=== PATIENT | female | born 1960 | race Caucasian/White ===

== ENCOUNTER 2021-01-14 13:05 | Outpatient (CLI) | payer OTHER, SELFPAY ==
--- NOTE | ~2021-01-14 | MM_ITS ---
EXAMINATION: MM diagnostic nakul LT w mark HISTORY: Left breast asymmetry demonstrated on outside examination. TECHNIQUE: Additional 3-D tomosynthesis images of the left breast were performed and synthetic 2-D im ages were generated. CAD analysis was submitted and interpreted. COMPARISON: 12/02/2018 BREAST PARENCHYMAL COMPOSITION: Breast composed of scattered areas of fibroglandular density. FINDINGS: There are no suspicious masses, calcifications or architectural distortion in the left [address] to suggest malignancy. If no prior outside mammograms on the right breast have been performed in t he interval, screening right mammogram is recommended. IMPRESSION: 1. No mammographic evidence for malignancy in the left breast. 2. Follow-up screening left mammogram is recommended. BI-RADS Category 0: Incomplete: Needs additional imaging evaluation. Reviewed, dictated and finalized at location A.
== END 2021-01-14 13:06 | disposition home or self-care (01) ==
LOC: ANHIMG 13:06
PROVIDERS: PCP Nurse Practitioner Family; Visit Provider Family Medicine
DX: R92.8 Other abnormal and inconclusive findings on diagnostic imaging of breast (principal)
CPT/HCPCS: 77061; 77065; G0279